=== PATIENT | female | born 1975 | race African-American/Black ===

== ENCOUNTER 2019-06-24 20:37 | Emergency (ER) | payer OTHER ==
[2019-06-24] MEDS ORDERED: DIPHTH,PERTUSS(ACELL),TET 0.5 ML DISP.SYRIN IM ONE ×2 (20:45→21:01)
[2019-06-24 20:48] VITALS: BP 139/78; PULSE 61; TEMP 98; BMI 27.9
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
== END 2019-06-24 21:10 | disposition home or self-care (01) ==
LOC: JERFT 20:37
PROC: 3E0234Z Introduction of Serum, Toxoid and Vaccine into Muscle, Percutaneous Approach (ICD-10-PCS; principal; 2019-06-24)
DX: S61.255A Open bite of left ring finger without damage to nail, initial encounter (principal); W50.3XXA Accidental bite by another person, initial encounter; Y93.89 Activity, other specified; Y92.89 Other specified places as the place of occurrence of the external cause; Y99.0 Civilian activity done for income or pay
CPT/HCPCS: 90715; 99281-25